=== PATIENT | male | born 1980 | race Caucasian/White ===

== ENCOUNTER → 2021-01-31 | Outpatient (CLI) | payer OTHER | END | disposition home or self-care (01) | LOC: RAD 14:09 | PROVIDERS: ATTEND Physician Assistant | DX: K76.89 Other specified diseases of liver (principal); R63.4 Abnormal weight loss; N39.43 Post-void dribbling; R19.4 Change in bowel habit; N32.89 Other specified disorders of bladder | CPT/HCPCS: 74176 ==

== ENCOUNTER → 2021-02-19 | Outpatient (CLI) | payer OTHER ==
[~2021-02-19] MED LIST: OMNIPAQUE 350 MG/ML, 100ML BOTTLE ONE
== END | disposition home or self-care (01) ==
LOC: CFH 14:21
PROVIDERS: ATTEND Physician Assistant
DX: N50.89 Other specified disorders of the male genital organs (principal); R93.89 Abnormal findings on diagnostic imaging of other specified body structures; N39.43 Post-void dribbling; R63.4 Abnormal weight loss; Q60.0 Renal agenesis, unilateral
CPT/HCPCS: 74178; Q9967